=== PATIENT | male | born 1950 | race Caucasian/White ===

== ENCOUNTER → 2017-12-28 | Outpatient (CLI) | payer OTHER | END | disposition home or self-care (01) | LOC: CFH 14:04 | PROVIDERS: ATTEND Family Medicine | DX: M47.897 Other spondylosis, lumbosacral region (principal); M48.07 Spinal stenosis, lumbosacral region; M79.605 Pain in left leg; M79.604 Pain in right leg; R20.0 Anesthesia of skin | CPT/HCPCS: 72148 ==

== ENCOUNTER 2020-07-17 06:58 | Emergency (ER) | payer MEDICARE ==
[~2020-07-17] VITALS: Ht 177.8 cm; Wt 59.5 kg
[~2020-07-17 06:58] MED LIST: GUAI600T31 PO; MORP-52 PO; OXYC10TA6 PO
[2020-07-17] MEDS ORDERED: FAMOTIDINE 20 MG/2 ML IVPush ONE (07:30)
[2020-07-17] MEDS ORDERED: SODIUM CHLORIDE FLUSH 10ML SYR IVF ONE (07:30)
[2020-07-17] MEDS ORDERED: ONDANSETRON 2MG/ML, 2ML IVPush ONE (07:30)
[2020-07-17] MEDS ORDERED: SODIUM CHLORIDE 0.9% 1,000ML IVBOLUS ONE (07:30)
[2020-07-17] MEDS ORDERED: HYDROmorphone 1 MG/ML, 1ML INJ IV ONE (07:30)
[2020-07-17 07:45] LABS: MEAN CORPUSCULAR HEMOGLOBIN 30.9 pg (27.5-34.5); MEAN CORPUSCULAR HGB CONC 33.8 g/dL (33.2-36.2); MEAN PLATELET VOLUME 8.9 fL (7.4-10.4); PLATELET COUNT 253 x10^3/uL (130-400); RED BLOOD COUNT 5.12 x10^6/uL (4.38-5.82); RED CELL DISTRIBUTION WIDTH 13.7 % (9.4-14.8)
[2020-07-17 07:55] LABS: ALANINE AMINOTRANSFERASE 32 U/L (12-78); ALBUMIN 4.4 g/dL (3.4-5.0); ANION GAP 9 mmol/L (5-15); CALCIUM 9.6 mg/dL (8.5-10.1); CHLORIDE 104 mmol/L (98-107); CREATININE 1.55 mg/dL (0.7-1.3)
[2020-07-17 07:57] LABS: ALKALINE PHOSPHATASE 70 U/L (45-117); BILIRUBIN,TOTAL 1.2 mg/dL (0.2-1.0); TOTAL PROTEIN 7.8 g/dL (6.4-8.2)
[2020-07-17] MEDS ORDERED: ONDANSETRON 2MG/ML, 2ML ONE (08:00)
[2020-07-17] MEDS ORDERED: HYDROmorphone 1 MG/ML, 1ML INJ ONE (08:00)
[2020-07-17] MEDS ORDERED: FAMOTIDINE 20 MG/2 ML ONE (08:00)
[2020-07-17 08:01] LABS: MD YES
[2020-07-17 08:03] LABS: <PLATELET ESTIMATE> ADEQUATE; <PLT MORPHOLOGY> NORMAL PLT MORPH; <RBC MORPHOLOGY> NORMAL; BAND#(MANUAL) 0.53 x10^3/uL; BANDS%(MANUAL) 4 % (0-7); LYMPH#(MANUAL) 1.06 x10^3/uL (1-3.4); LYMPHS% (MANUAL) 8 % (22-44); MONOS#(MANUAL) 0.53 x10^3/uL (0.3-2.7); MONOS% (MANUAL) 4 % (2-9); SEG#(MANUAL) 11.17 x10^3/uL (1.8-6.8); SEGS% (MANUAL) 84 % (42-75)
--- NOTE | 2020-07-17 09:14 | NUR ---
TASK RN: URINE COLLECTED AND SENT TO LAB. PT HTN, OTHER VSS. PT REPORTS NOT MUCH CHANGE IN PAIN. NADN. SIDERAIL UPX2. CALL LIGHT WITHIN REACH.
--- NOTE | 2020-07-17 09:15 | NUR ---
PT URINE COLLECTED AND SENT TO LAB
[2020-07-17 09:28] LABS: MICROSCOPIC AUTO
--- NOTE | 2020-07-17 09:49 | NUR ---
PT GIVEN WATER FOR PO CHALLENGE. PT DRINKING WITHOUT ISSUE.
[2020-07-17] MEDS ORDERED: OXYcodone/APAP 5/325MG TABLET ONE (11:42)
[2020-07-17] MEDS ORDERED: OXYcodone/APAP 5/325MG TABLET PO ONE (12:00)
[2020-07-17 12:23] VITALS: BP 164/110
--- NOTE | 2020-07-17 12:34 | NUR ---
PT REC'VD DISCHARGE INSTRUCTIONS AND EDUCATION. PT HAD NO FURTHER QUESTIONS. PT AND SPOUSE AMBULATED TO DC AREA, STEADY GAIT.
== END 2020-07-17 12:36 | disposition home or self-care (01) ==
LOC: ED 07:32
DX: R11.2 Nausea with vomiting, unspecified (principal); F11.23 Opioid dependence with withdrawal; R10.9 Unspecified abdominal pain; M54.9 Dorsalgia, unspecified; R94.31 Abnormal electrocardiogram [ECG] [EKG]
CPT/HCPCS: 36415; 71045; 80053; 81001; 82962; 83690; 85025; 87086; 93005; 96361; 96374; 96375; 99285; J1170; J2405; J7030

== ENCOUNTER 2020-07-21 11:31 | Observation (INO) | payer MEDICARE ==
[~2020-07-21] VITALS: Ht 175.3 cm; Wt 61.5 kg
--- NOTE | 2020-07-21 11:39 | NUR ---
EKG done in triage.
--- NOTE | 2020-07-21 11:50 | NUR ---
PT BIB VIA POV. PER PT HAS HAD 3 FALLS THIS AM AND SHE REPORTS HE "BLACKED OUT" DURING LAST FALL. PT DENIES HITTING HEAD OR BEING ON ANY BLOOD THINNERS. PT ALSO REPORTING THAT HE FEELS HIS LEGS ARE GETTING PROGRESSIVELY MORE WEAK OVER THE LAST WEEK. PT ALSO HAS A HX OF THROAT CANCER AND HAS A PERMANENT TRACH, PT IS NONVERBAL BUT ABLE TO ANSWER QUESTIONS VIA WHITEBOARD. PT RESTING IN [facility], MONITORING IN PLACE, AT BEDSIDE, EKG DONE IN TRIAGE, NADN AT THIS TIME, WCTM.
[2020-07-21] MEDS ORDERED: SODIUM CHLORIDE 0.9% 1,000ML IVBOLUS ONE (12:30)
[2020-07-21 12:37] LABS: BASOPHILS % (AUTO) 1 % (0-1); EOSINOPHILS % (AUTO) 2 % (1-7); LYMPHOCYTES % (AUTO) 10 % (22-44); MEAN CORPUSCULAR HEMOGLOBIN 31.1 pg (27.5-34.5); MEAN CORPUSCULAR HGB CONC 33.5 g/dL (33.2-36.2); MEAN PLATELET VOLUME 8.5 fL (7.4-10.4); MONOCYTES % (AUTO) 8 % (2-9); NEUTROPHILS % (AUTO) 79 % (42-75); PLATELET COUNT 184 x10^3/uL (130-400); RED BLOOD COUNT 4.22 x10^6/uL (4.38-5.82); RED CELL DISTRIBUTION WIDTH 13.8 % (9.4-14.8)
[2020-07-21 12:40] LABS: MD NO
[2020-07-21 12:48] LABS: ALANINE AMINOTRANSFERASE 28 U/L (12-78); ALBUMIN 3.6 g/dL (3.4-5.0); ANION GAP 6 mmol/L (5-15); CALCIUM 8.9 mg/dL (8.5-10.1); CHLORIDE 104 mmol/L (98-107); CREATININE 1.62 mg/dL (0.7-1.3)
[2020-07-21 12:50] LABS: ALKALINE PHOSPHATASE 51 U/L (45-117); BILIRUBIN,TOTAL 0.8 mg/dL (0.2-1.0)
[2020-07-21 13:15] LABS: TROPONIN I < 0.015 ng/mL (0.000-0.045)
[2020-07-21 15:26] VITALS: BP 180/93
[2020-07-21] MEDS ORDERED: ONDANSETRON 2MG/ML, 2ML IVPush PRN (15:30)
[2020-07-21] MEDS ORDERED: METHOCARBAMOL 500 MG TABLET PO PRN (15:30)
[2020-07-21] MEDS ORDERED: hydrALAzine 20 MG/ML, 1ML IVPush PRN (15:30)
[2020-07-21] MEDS ORDERED: BISACODYL 10 MG SUPP PR PRN (15:30)
[2020-07-21] MEDS ORDERED: ACETAMINOPHEN 325 MG TABLET PO PRN (15:30)
[2020-07-21] MEDS ORDERED: LABETALOL 5MG/ML, 20ML IVPush PRN (15:30)
[2020-07-21] MEDS ORDERED: ONDANSETRON ODT 4 MG PO PRN (15:30)
[2020-07-21] MEDS ORDERED: POLYETHYLENE GLYCOL 17 GM PACKET PO PRN (15:30)
[2020-07-21] MEDS ORDERED: GABA600T7 PO (15:46)
[2020-07-21] MEDS ORDERED: LEVO125T5 PO (15:46)
[2020-07-21] MEDS ORDERED: TAMS-11 PO (15:46)
[2020-07-21] MEDS: PANTOPRAZOLE 20MG TABLET PO SCH (16:18)
[2020-07-21] MEDS: OXYcodone IR 5MG TABLET PO PRN (16:19)
[2020-07-21] MEDS: GABAPENTIN 300 MG CAPSULE PO SCH ×2 (16:19→20:13)
[2020-07-21] MEDS: LACTATED RINGERS 1,000 ML IV SCH (18:27)
[2020-07-21 18:43] VITALS: BP_SYST 116; BP_SYST 150; BP_DIAS 66; BP_DIAS 70
[2020-07-21 18:45] VITALS: BP 159/88
[2020-07-21 18:48] VITALS: BP 114/69
[2020-07-21 22:49] LABS: MICROSCOPIC NOT IND
[2020-07-22] MEDS: OXYcodone IR 5MG TABLET PO PRN ×3 (00:07→12:13)
[2020-07-22 00:09] VITALS: BP 122/74
[2020-07-22] MEDS: LACTATED RINGERS 1,000 ML IV SCH ×2 (02:28→10:45)
[2020-07-22] MEDS: PANTOPRAZOLE 20MG TABLET PO SCH (05:15)
[2020-07-22 05:26] LABS: BASOPHILS % (AUTO) 1 % (0-1); EOSINOPHILS % (AUTO) 4 % (1-7); LYMPHOCYTES % (AUTO) 16 % (22-44); MEAN CORPUSCULAR HEMOGLOBIN 31.3 pg (27.5-34.5); MEAN CORPUSCULAR HGB CONC 33.8 g/dL (33.2-36.2); MEAN PLATELET VOLUME 9.5 fL (7.4-10.4); MONOCYTES % (AUTO) 10 % (2-9); NEUTROPHILS % (AUTO) 69 % (42-75); PLATELET COUNT 174 x10^3/uL (130-400); RED BLOOD COUNT 3.94 x10^6/uL (4.38-5.82); RED CELL DISTRIBUTION WIDTH 13.7 % (9.4-14.8)
[2020-07-22 05:28] LABS: MD NO
[2020-07-22 05:31] LABS: CHLORIDE 106 mmol/L (98-107)
[2020-07-22 05:47] LABS: ANION GAP 4 mmol/L (5-15); CALCIUM 7.9 mg/dL (8.5-10.1)
[2020-07-22] MEDS ORDERED: LEVOTHYROXINE 125 MCG TABLET PO SCH (06:00)
[2020-07-22 08:24] LABS: T4 (THYROXINE) 6.9 mcg/dL (4.5-12.1)
[2020-07-22] MEDS ORDERED: SENNA/DOCUSATE TABLET PO SCH (09:00)
[2020-07-22 09:04] VITALS: BP 125/77
[2020-07-22 09:07] VITALS: BP 136/79
[2020-07-22 09:09] VITALS: BP 138/79
[2020-07-22] MEDS: GABAPENTIN 300 MG CAPSULE PO SCH (09:31)
[2020-07-22] MEDS ORDERED: PANT20TA4 PO (11:08)
[2020-07-22] MEDS ORDERED: MORP-52 PO (11:08)
== END 2020-07-22 13:46 | disposition home or self-care (01) ==
LOC: ED 14:00 → INTOOBSV 14:22 → EDIP 14:22 → 5SO 15:22 → DCLOUNGE 07-22 13:37
PROVIDERS: ADMIT Emergency Medicine; ATTEND Emergency Medicine
DX: R55 Syncope and collapse (principal); E86.0 Dehydration; N17.0 Acute kidney failure with tubular necrosis; R71.0 Precipitous drop in hematocrit; N18.30 Chronic kidney disease, stage 3 unspecified; M54.5 Low back pain; F11.23 Opioid dependence with withdrawal; E03.9 Hypothyroidism, unspecified; K40.90 Unilateral inguinal hernia, without obstruction or gangrene, not specified as recurrent; Z85.01 Personal history of malignant neoplasm of esophagus; Z93.0 Tracheostomy status; Z79.899 Other long term (current) drug therapy; Z88.0 Allergy status to penicillin; Z87.891 Personal history of nicotine dependence; Z85.21 Personal history of malignant neoplasm of larynx; Z96.642 Presence of left artificial hip joint; W19.XXXA Unspecified fall, initial encounter; Y92.009 Unspecified place in unspecified non-institutional (private) residence as the place of occurrence of the external cause; Y93.01 Activity, walking, marching and hiking
CPT/HCPCS: 36415; 70450; 80048; 80053; 81003; 84436; 84443; 84481; 84484; 85025; 93005; 96360; 96361; 99285; G0378; J7120

== ENCOUNTER → 2020-09-05 | Outpatient (CLI) | payer MEDICARE ==
[~2020-09-05] MED LIST changes: +FINA5TAB4 PO; +GABA600T7 PO; +GUAI12009 PO; +LEVO112T2 PO; +LEVO125T5 PO; +MORP30TA81 PO; +PANT20TA4 PO; +TAMS-11 PO
== END | disposition home or self-care (01) ==
LOC: STAR 10:22
PROVIDERS: ATTEND Surgery
DX: Z01.818 Encounter for other preprocedural examination (principal); I51.7 Cardiomegaly; Z20.822 Contact with and (suspected) exposure to COVID-19
CPT/HCPCS: 93005; U0003; U0005

== ENCOUNTER 2020-09-11 05:20 | Day surgery (SDC) | payer MEDICARE ==
[~2020-09-11] VITALS: Ht 175.3 cm; Wt 62.9 kg
[2020-09-11 06:04] VITALS: BP 195/111
[2020-09-11] MEDS ORDERED: CHLORHEXIDINE 15 ML UDC ONE (06:13)
[2020-09-11] MEDS ORDERED: EPINEPHRINE 1 MG/ML, 1ML ONE (06:20)
[2020-09-11] MEDS ORDERED: BUPIVACAINE/PF 0.5% ONE (06:20)
[2020-09-11] MEDS ORDERED: LACTATED RINGERS 1,000 ML IV SCH (06:30)
[2020-09-11] MEDS ORDERED: CHLORHEXIDINE 15 ML UDC PO ONE (06:30)
[2020-09-11 06:33] VITALS: BP 168/94
[2020-09-11] MEDS ORDERED: MIDAZOLAM 1 MG/ML, 2ML ONE (06:43)
[2020-09-11] MEDS ORDERED: FENTANYL PF 100 MCG/2ML ONE ×2 (06:44→09:34)
[2020-09-11] MEDS ORDERED: PROPOFOL 10 MG/ML, 20ML ONE (06:47)
[2020-09-11] MEDS ORDERED: CEFAZOLIN 1,000 MG ONE (06:47)
[2020-09-11] MEDS ORDERED: GLYCOPYRROLATE 0.2MG/1ML, 5ML ONE (06:47)
[2020-09-11] MEDS ORDERED: ONDANSETRON 2MG/ML, 2ML ONE (06:47)
[2020-09-11] MEDS ORDERED: DEXAMETHASONE 4 MG/ML, 1ML ONE (06:47)
[2020-09-11] MEDS ORDERED: NEOSTIGMINE 1 MG/ML, 10ML ONE (06:47)
[2020-09-11] MEDS ORDERED: ROCURONIUM 10MG/ML,5ML ONE (06:47)
[2020-09-11] MEDS ORDERED: SUCCINYLCHOLINE 20 MG/ML, 10ML ONE (06:47)
[2020-09-11] MEDS ORDERED: HYDROcodone/APAP 7.5-325MG/15ML UDC PO PRN (08:00)
[2020-09-11] MEDS ORDERED: PROMETHAZINE 25 MG/ML, 1ML IVPush PRN (08:00)
[2020-09-11] MEDS ORDERED: MEPERIDINE/PF 25MG/0.5ML IVPush PRN (08:00)
[2020-09-11] MEDS ORDERED: OXYcodone 5 MG/5 ML ORAL.SOL UDC PO PRN (08:00)
[2020-09-11] MEDS ORDERED: ONDANSETRON 2MG/ML, 2ML IVPush PRN (08:00)
[2020-09-11] MEDS ORDERED: METHOCARBAMOL 1,000 MG in DEXTROSE 5% 100 ML IV PRN (08:00)
[2020-09-11] MEDS ORDERED: ONDA4TAB7 PO (09:33)
[2020-09-11] MEDS ORDERED: HYDROcodone/APAP 7.5-325MG/15ML UDC ONE ×2 (09:34→09:45)
[2020-09-11] MEDS: FENTANYL PF 100 MCG/2ML IV PRN ×4 (09:40→09:59)
[2020-09-11] MEDS ORDERED: HYDROmorphone 1 MG/ML, 1ML INJ ONE (09:45)
[2020-09-11] MEDS: HYDROmorphone 1 MG/ML, 1ML INJ IVPush PRN ×2 (10:10→10:19)
[2020-09-11] MEDS ORDERED: morphine SULFATE 10 MG/ML, 1ML ONE (12:21)
[2020-09-11] MEDS ORDERED: OXYcodone IR 5MG TABLET PO PRN (12:30)
[2020-09-11] MEDS ORDERED: morphine SULFATE 10 MG/ML, 1ML IVPush PRN (12:30)
[2020-09-11] MEDS ORDERED: GABAPENTIN 300 MG CAPSULE PO ONE (12:30)
== END 2020-09-11 13:30 | disposition home or self-care (01) ==
LOC: OUT 05:20
PROVIDERS: ATTEND Surgery
DX: K40.20 Bilateral inguinal hernia, without obstruction or gangrene, not specified as recurrent (principal); D23.5 Other benign neoplasm of skin of trunk; L82.1 Other seborrheic keratosis; E11.22 Type 2 diabetes mellitus with diabetic chronic kidney disease; N18.9 Chronic kidney disease, unspecified; N40.0 Benign prostatic hyperplasia without lower urinary tract symptoms; E03.9 Hypothyroidism, unspecified; Z79.890 Hormone replacement therapy; Z79.891 Long term (current) use of opiate analgesic; Z79.899 Other long term (current) drug therapy; Z88.0 Allergy status to penicillin; Z85.21 Personal history of malignant neoplasm of larynx
CPT/HCPCS: 11400; 49505; 88305; J0171; J0330; J0690; J1100; J1170; J2250; J2270; J2405; J2704; J2710; J2800; J3010; J7120; C1781